=== PATIENT | male | born 1980 | race Caucasian/White ===

== ENCOUNTER 2019-04-27 02:15 | Inpatient (IN) | payer MEDICAID ==
[~2019-04-27] VITALS: Ht 170.2 cm; Wt 75.7 kg
--- NOTE | 2019-04-27 02:21 | NUR ---
PT BIBA TO BED 02.
--- NOTE | 2019-04-27 02:25 | NUR ---
39 YO M BIBA FROM HOUSE FOR CHEST PAIN. PER EMS, PT WAS FOUND SITTING IN CHAIR SCREAMING IN PAIN, CLUTCHING CHEST AND UNABLE TO PROVIDE ANY MEDICAL HX OR INFORMATION. PT ARRIVES AWAKE, SCREAMING UNINTELLIGBLE PHRASES, WRITHING ON GURNEY, CLUTCHING CHEST. PT UNABLE TO PROVIDE ANY INFORMATION OR HISTORY AT THIS TIME. GCS 13. -- PT AWAKE, A/O X 0. UNCCOPERATIVE, AGGRESSIVE BEHAVIOR. PT IS NOT COMBATIVE AT THIS TIME. SECURITY CALLED TO ED. UNABLE TO ANSWER QUESTIONS. -- SKIN IS MOIST, CLAMMY. VSS ELEVATED. PUPILS FIXED AND CONTSRTICTED. PMH-- UNOBTAINABLE
[2019-04-27] MEDS ORDERED: HALOPERIDOL IM 5 MG/ML VIAL IM ONE (02:30)
[2019-04-27] MEDS ORDERED: LORazepam 2 MG/ML VIAL IM ONE (02:30)
[2019-04-27] MEDS ORDERED: LORazepam 2 MG/ML VIAL ONE (02:31)
--- NOTE | 2019-04-27 03:00 | NUR ---
PT IS CALM, SEDATED. NURSING CARES RESUMED.
--- NOTE | 2019-04-27 03:02 | NUR ---
EKG PERFORMED AT BEDSIDE
--- NOTE | 2019-04-27 03:15 | NUR ---
LABS DRAWN BY RN AT BEDSIDE.
--- NOTE | 2019-04-27 03:30 | NUR ---
# 16 FR straight catheter utilizing sterile technique. Immediate return of 250 ml yellow urine noted. Urine sample collected and sent to lab. Pt tolerated procedure well.
--- NOTE | 2019-04-27 03:35 | NUR ---
XRAY AT BEDSIDE. CXR COMPLETED.
[2019-04-27 04:02] LABS: APPEARANCE,URINE CLEAR (CLEAR); BILIRUBIN,URINE NEGATIVE (NEGATIVE); BLOOD, URINE TRACE-L (NEGATIVE); COLOR,URINE YELLOW (YELLOW); LEUKOCYTE ESTERASE ,URINE NEGATIVE (NEGATIVE); NITRITE, URINE NEGATIVE (NEGATIVE); PH,URINE 6.5 (5.0-9.0); UGLUCOSE 3+ (NEGATIVE)
[2019-04-27 04:04] LABS: BASOPHILS # (AUTO) 0.1 K/uL (0.00-0.22); BASOPHILS % (AUTO) 0.6 % (0.0-2.0); EOSINOPHILS # (AUTO) 0.1 K/uL (0-0.4); HEMATOCRIT 46.9 % (36-52); HEMOGLOBIN 15.8 g/dL (12.0-18.0); LYMPHOCYTES # (AUTO) 2.7 K/uL (2.0-11.5); LYMPHOCYTES % (AUTO) 31.3 % (20.5-51.1); MEAN CORPUSCULAR HEMOGLOBIN 28 pg (27-31); MEAN CORPUSCULAR HGB CONC 34 g/dL (33-37); MEAN CORPUSCULAR VOLUME 82.6 fL (80-94); MONOCYTES # (AUTO) 0.7 K/uL (0.8-1.0); MONOCYTES % (AUTO) 8.2 % (1.7-9.3); NEUTROPHILS # (AUTO) 5.1 K/uL (1.8-7.7); PLATELET COUNT (AUTO) 198 K/uL (140-450); RED BLOOD CELL COUNT(AUTO) 5.68 MIL/uL (4.20-6.10); RED CELL DISTRIBUTION WIDTH 14.3 % (11.6-13.7); WHITE BLOOD COUNT (AUTO) 8.7 K/uL (4.8-10.8)
[2019-04-27 04:08] LABS: BARBITURATE, URINE NEG. ng/ml (NEG <=200); BENZODIAZEPINE, URINE NEG. ng/mL (NEG <=200); CANNABINOID, URINE POS. ng/mL (NEG <=50); COCAINE, URINE POS. ng/mL (NEG <=300); OPIATE, URINE NEG. ng/mL (NEG <=2000); PHENCYCLIDINE SCREEN,URINE NEG. ng/mL (NEG <=25)
--- NOTE | 2019-04-27 04:08 | NUR ---
PT TAKEN TO CT VIA [facility] WITH RN, EMT, SPRING INTERN.
[2019-04-27 04:18] LABS: ALBUMIN 3.9 g/dL (3.4-5.0); ASPARTATE AMINOTRANSFERASE 21 U/L (15-37); CARBON DIOXIDE 23.6 mmol/L (21-32); CHLORIDE 97 mmol/L (98-107); CREATININE 0.9 mg/dL (0.7-1.3); GFR ARICAN-AMERICAN 120 mL/min (>90); GLUCOSE 342 mg/dL (74-106); SODIUM SERUM 133 mmol/L (136-145); TOTAL BILIRUBIN 0.7 mg/dL (0.0-1.0); UREA NITROGEN, BLOOD 13 mg/dL (7-18)
[2019-04-27 04:27] LABS: NEUTROPHILS % (AUTO) 58.9 % (42.2-75.2)
--- NOTE | 2019-04-27 04:28 | NUR ---
PT RETURNED FROM CT VIA [facility] WITH RN, EMT, CATHODE MAKER. Addendum: 04/27/19 at 0432 by [facility] PT TOLERATED WELL.
[2019-04-27 04:32] LABS: POTASSIUM 2.6 mmol/L (3.5-5.1); SALICYLATE < 2.8 mg/dL (2.8-20.0)
[2019-04-27 04:33] LABS: ACETAMINOPHEN < 0.5 ug/ml (10-30)
[2019-04-27] MEDS ORDERED: KCL 20 MEQ/WATER INJ PREMIX 200 ML IV ONE (04:35)
[2019-04-27 04:44] LABS: RBC,URINE 0-5 /HPF (0-5); WBC,URINE NONE SEEN /HPF (0-5)
--- NOTE | 2019-04-27 05:24 | NUR ---
PT SLEEPING DEEPLY. LOUD SNORING HEARD. AROUSABLE TO PAINFUL STIMULI. VSS. SKIN PINK, COOL, CLAMMY.
[2019-04-27] MEDS ORDERED: POTASSIUM CHL 40 MEQ/ D5-1/2NS 1,000 ML IV ONE (06:00)
[2019-04-27] MEDS: NACL 0.9% 1,000 ML IV SCH ×2 (06:13→21:57)
[2019-04-27] MEDS ORDERED: MORPHINE SULFATE 2 MG/ML SYR IVP PRN (06:15)
[2019-04-27] MEDS ORDERED: HYDROcodone/APAP 5/325 MG 1 TAB TAB PO PRN (06:15)
[2019-04-27] MEDS ORDERED: ACETAMINOPHEN 325 MG TAB PO PRN (06:15)
[2019-04-27] MEDS ORDERED: DOCUSATE SODIUM 100 MG GELCAP PO PRN (06:15)
[2019-04-27] MEDS ORDERED: ONDANSETRON 4 MG/2 ML VIAL IM/IVP PRN (06:15)
[2019-04-27] MEDS ORDERED: INSULIN LISPRO SLIDING SCALE 100 UNITS/ML VIAL SUBQ PRN (06:25)
[2019-04-27] MEDS ORDERED: DEXTROSE 50% 50 ML SYR IVP PRN ×2 (06:25→11:20)
--- NOTE | 2019-04-27 06:33 | NUR ---
PT SLEEPING DEEPLY. LOUD SNORING HEARD. AROUSABLE TO PAINFUL STIMULI. VSS. SKIN PINK, COOL, CLAMMY. Addendum: 04/27/19 at 0636 by [facility] KCL RUNNING WITHOUT COMPLICATIONS.
[2019-04-27 06:55] LABS: CHOL/HDL RATIO 8.3 (1-4.5); MAGNESIUM 1.8 mg/dL (1.8-2.4); PHOSPHORUS 1.7 mg/dL (2.5-4.9); THYROID STIMULATING HORMONE 6.56 uIU/mL (0.34-3.74)
[2019-04-27 07:00] LABS: PROTHROMBIN TIME 9.7 secs (10.8-13.4)
--- NOTE | 2019-04-27 07:29 | NUR ---
REPORT GIVEN TO ARNIE RENEE. TRANSFER OF CARE AT THIS TIME.
[2019-04-27] MEDS ORDERED: BLOOD GLUCOSE MONITORING 1 DEV DEV FS SCH (07:30)
--- NOTE | 2019-04-27 07:30 | NUR ---
CHECKED PT. REPONSE TO PAIN STIMULI. NO S/S OF RESPIRATORY DISTRESS NOTED.
--- NOTE | 2019-04-27 08:00 | NUR ---
PT IS MORE AWAKE, ALERT. ABLE TO FOLLOW COMMANDS.
--- NOTE | 2019-04-27 08:20 | NUR ---
Pt admitted to room 124A via gurney from ER. Pt transferred from gurney to bed with minimal assistance .Report received from Er nurse Jeanne. Pt drowsy, unable to state name, unable to answer complex questions, difficulty following commands, fall precautions initiated, unable to complete medical history due to ALOC. . L AC IV 18 G, d5 1/2 NS plus 40 meq KCL @ 50 ml / hr. Bed alarm , monitor technician in place. Call light in reach
[2019-04-27 08:30] VITALS: BP 115/78
--- NOTE | 2019-04-27 08:30 | NUR ---
TRANSFERRED PT TO TELE 124 A, REPORT GIVEN TO RAFAT GAITAN. PT VITALS STABLE
[2019-04-27] MEDS ORDERED: METOPROLOL 25 MG TAB PO SCH ×2 (09:21→21:00)
[2019-04-27] MEDS ORDERED: LISINOPRIL 10 MG TAB PO SCH (09:22)
[2019-04-27] MEDS ORDERED: ATORVASTATIN 20 MG TAB PO SCH (09:23)
[2019-04-27] MEDS ORDERED: ASPIRIN 81 MG TAB.CHEW PO SCH (09:24)
--- NOTE | 2019-04-27 10:54 | NUR ---
Late entry. Confirmed with nurse that 20 meq KCL IV ended on transfer at 0830. D5.45 w/KCL IV ended at 0830 whern transferred.
[2019-04-27] MEDS ORDERED: SODIUM PHOS / POTASSIUM PHOS 1 PKT PDR PO SCH (11:00)
[2019-04-27] MEDS ORDERED: GLUCAGON 1 MG VIAL IVP PRN (11:20)
[2019-04-27 12:00] VITALS: BP 105/70
[2019-04-27 12:08] LABS: ANION GAP 12.2 (8-16); CARBON DIOXIDE 24.9 mmol/L (21-32); CREATININE 0.8 mg/dL (0.7-1.3); POTASSIUM 4.1 mmol/L (3.5-5.1)
[2019-04-27] MEDS: BLOOD GLUCOSE MONITORING 1 DEV DEV FS SCH ×3 (12:17→21:00)
--- NOTE | 2019-04-27 12:30 | NUR ---
Pt asleep in bed, arousable by shaking. Pt drowsy, able to follow simple commands but falls back to sleep almost immediately. No signs of distress. Left AC IV intact with ongoing D5 1/2NS @ 50ml/h. Bed alarm on. Call light within reach.
[2019-04-27] MEDS: INSULIN LISPRO SLIDING SCALE 100 UNITS/ML VIAL SUBQ PRN ×3 (12:31→22:07)
[2019-04-27 12:51] LABS: URIC ACID 5.2 mg/dL (2.6-7.2)
--- NOTE | 2019-04-27 14:30 | NUR ---
Pt asleep in bed, arousable by shaking. Pt drowsy, able to follow simple commands but falls back to sleep almost immediately. No signs of distress. Call light within reach. [id number]
[2019-04-27 15:34] LABS: CKMB RELATIVE INDEX 0.6 (0.0-2.5); CREATINE KINASE MB 2.3 ng/mL (0-3.6)
[2019-04-27 16:00] VITALS: BP 96/61
--- NOTE | 2019-04-27 17:00 | NUR ---
Pt asleep in bed, arousable by shaking. Pt still drowsy, able to follow simple commands but falls back to sleep almost immediately. No signs of distress. Call light within reach.
--- NOTE | 2019-04-27 18:00 | NUR ---
Pt aaox4, verbally responsive in Japanese. Medical & social hx obtained from pt via [employer] bridge inspector (Abdiaziz # [id number]). Pt provided showroom salesperson (friend) Jaye Almanza [phone] in case of emergency. Pt oriented to room & unit, able to return demonstrate proper use of call light. Bed alarm on. Call light within reach.
[2019-04-27] MEDS ORDERED: INFLUENZA VACCINE QUAD 0.5 ML SYR IMVAC PRN (19:00)
[2019-04-27] MEDS ORDERED: PNEUMOCOCCAL VACCINE 23 MCG/0.5 ML VIAL IMVAC PRN (19:00)
--- NOTE | 2019-04-27 19:19 | NUR ---
Shift report given to phlebotomy director nurse. Pt sleeping at this time. No signs of distress. Call light in each.
--- NOTE | 2019-04-27 19:20 | NUR ---
Received endorsement from AM shift RN; patient A/Ox3, able to make needs known, Mauritian speaking, ambulatory. Patient eating dinner; introduced self, updated board. No SOB or distress noted, on room air. IV site noted on left forearm, 18 gauge, running IVF. Bed in the lowest position, call light within reach. Initial assessment done. will continue to monitor.
[2019-04-27 20:00] VITALS: BP 110/64
--- NOTE | 2019-04-27 20:50 | NUR ---
Vitals taken, no distress noted.
--- NOTE | 2019-04-27 21:55 | NUR ---
Due meds given, tolerated well.
[2019-04-27] MEDS: GABAPENTIN 300 MG CAP PO SCH (21:57)
[2019-04-28] VITALS: BP 90/54
--- NOTE | 2019-04-28 00:40 | NUR ---
Vitals taken, no distress noted.
--- NOTE | 2019-04-28 02:40 | NUR ---
Rounds done; patient asleep on left lateral side, visible chest rise and fall noted.
[2019-04-28 04:00] VITALS: BP 100/58
[2019-04-28] MEDS: NACL 0.9% 1,000 ML IV SCH ×3 (04:23→21:52)
--- NOTE | 2019-04-28 04:40 | NUR ---
Vitals taken, no distress noted.
[2019-04-28] MEDS: BLOOD GLUCOSE MONITORING 1 DEV DEV FS SCH ×4 (04:57→21:50)
[2019-04-28] MEDS: INSULIN LISPRO SLIDING SCALE 100 UNITS/ML VIAL SUBQ PRN ×3 (05:02→21:53)
--- NOTE | 2019-04-28 06:30 | NUR ---
Vitals stable, due meds given. Will endorse to AM shift RN for continuity of care.
[2019-04-28 06:43] LABS: ANION GAP 11.8 (8-16); CREATININE 0.7 mg/dL (0.7-1.3); POTASSIUM 3.8 mmol/L (3.5-5.1)
[2019-04-28 06:44] LABS: BASOPHILS % (AUTO) 0.7 % (0.0-2.0); EOSINOPHILS # (AUTO) 0.2 K/uL (0-0.4); EOSINOPHILS % (AUTO) 3.1 % (0.0-4.0); HEMATOCRIT 44.4 % (36-52); HEMOGLOBIN 14.7 g/dL (12.0-18.0); LYMPHOCYTES % (AUTO) 44.9 % (20.5-51.1); MEAN CORPUSCULAR HEMOGLOBIN 28 pg (27-31); MEAN CORPUSCULAR HGB CONC 33 g/dL (33-37); MEAN CORPUSCULAR VOLUME 84.4 fL (80-94); MONOCYTES # (AUTO) 0.4 K/uL (0.8-1.0); MONOCYTES % (AUTO) 6.4 % (1.7-9.3); NEUTROPHILS % (AUTO) 44.9 % (42.2-75.2); PLATELET COUNT (AUTO) 178 K/uL (140-450); RED BLOOD CELL COUNT(AUTO) 5.26 MIL/uL (4.20-6.10); RED CELL DISTRIBUTION WIDTH 14.4 % (11.6-13.7); WHITE BLOOD COUNT (AUTO) 6.6 K/uL (4.8-10.8)
[2019-04-28 06:55] LABS: MAGNESIUM 1.6 mg/dL (1.8-2.4); PHOSPHORUS 4.2 mg/dL (2.5-4.9)
--- NOTE | 2019-04-28 07:15 | NUR ---
Received bedside report from pm nurse Saroj. Pt resting in bed, aaox4, no signs of distress, no c/o discomfort. Left AC IV intact with ongoing NS @ 130ml/h. Bed alarm on. Call light within reach.
[2019-04-28 07:53] VITALS: BP 98/63
[2019-04-28] MEDS ORDERED: metFORMIN 500 MG TAB PO SCH ×2 (08:19→17:00)
--- NOTE | 2019-04-28 08:27 | NUR ---
PATIENT HAS BEEN SCREENED AND CATEGORIZED MODERATE NUTRITION RISK. PATIENT WILL BE SEEN WITHIN 3-5 DAYS OF ADMISSION. 04/29/19 05/01/[address]
[2019-04-28] MEDS: ASPIRIN 81 MG TAB.CHEW PO SCH (08:44)
[2019-04-28] MEDS: metFORMIN 500 MG TAB PO SCH ×2 (08:44→17:12)
[2019-04-28] MEDS: LISINOPRIL 10 MG TAB PO SCH (08:48)
--- NOTE | 2019-04-28 10:36 | NUR ---
Pt aaox4, resting in bed, watching TV. No signs of distress, no c/o discomfort. Left AC IV intact with ongoing NS @ 130ml/h. Pt with steady gait, & good safety awareness, able to navigate with IV pole from bed to restroom & vice versa. Call light within reach.
--- NOTE | 2019-04-28 10:51 | NUR ---
Dr Sim notified of Mg level = 1.6. Per physician, will input orders accordingly.
[2019-04-28] MEDS ORDERED: MAG SULF 2000 MG/WATER PREMIX 50 ML IV SCH (10:53)
[2019-04-28 12:00] VITALS: BP 115/73
[2019-04-28] MEDS ORDERED: KETOROLAC 30 MG/ML VIAL IM PRN (12:15)
--- NOTE | 2019-04-28 12:30 | NUR ---
Offered to change gown from yellow to blue (dc fall precautions). Pt refused and states "later". Pt amb steadily, able to maneuver IV pole with good safety awareness. Left AC IV intact with ongoing NS @ 130ml/h. Call light within reach.
[2019-04-28 16:00] VITALS: BP 112/75
--- NOTE | 2019-04-28 17:45 | NUR ---
Pt sitting up in bed, eating dinner. No c/o discomfort, no signs of distress. Left AC IV intact with ongoing NS @ 130ml/h. Call light within reach.
[2019-04-28] MEDS ORDERED: LISI10TA11 PO (18:45)
[2019-04-28] MEDS ORDERED: GABA-638 PO (18:45)
[2019-04-28] MEDS ORDERED: ATOR20TA40 PO (18:45)
[2019-04-28] MEDS ORDERED: ASPI81CT95 PO (18:45)
[2019-04-28] MEDS ORDERED: METF500T PO (18:45)
--- NOTE | 2019-04-28 19:10 | NUR ---
Bedside report given to pm nurse Kisses. Pt in non distress.
--- NOTE | 2019-04-28 19:26 | NUR ---
RECEIVED BEDSIDE REPORT FROM DAY SHIFT NURSE. PATIENT IS AWAKE AND COOPERATIVE. RESPIRATION EVEN UNLABORED ON ROOM AIR. NO DISTRESS NOTED. SKIN IS WARM AND DRY. IV PATENT AND INTACT. PLAN OF CARE WAS DISCUSSED. ALL SAFETY MEASURES IN PLACE. BED IS AT LOW POSITION. CALL LIGHT WITHIN REACH AND VERBALIZES ITS USE. WILL CONTINUE TO MONITOR.
[2019-04-28 20:00] VITALS: BP 115/85
--- NOTE | 2019-04-28 20:10 | NUR ---
INITIAL ASSESSMENT DONE. VITALS WERE TAKEN. PATIENT IN STABLE CONDITION. WILL CONTINUE TO MONITOR.
[2019-04-28] MEDS ORDERED: ATORVASTATIN 20 MG TAB PO SCH (21:00)
--- NOTE | 2019-04-28 21:30 | NUR ---
ALL SCHEDULED MEDS WERE GIVEN PER ORDER. NO ASE NOTED. WILL CONTINUE TO MONITOR.
[2019-04-28] MEDS: GABAPENTIN 300 MG CAP PO SCH (21:50)
--- NOTE | 2019-04-28 22:45 | NUR ---
PATIENT IN BED WATCHING TV RESPIRATION EVEN UNLABORED ON ROOM AIR. NO DISTRESS NOTED. WILL CONTINUE TO MONITOR
[2019-04-29] VITALS: BP 120/82
--- NOTE | 2019-04-29 | NUR ---
VITALS WERE TAKEN. PATIENT IN STABLE CONDITION. NO DISTRESS NOTED. WILL CONTINUE TO MONITOR
--- NOTE | 2019-04-29 02:15 | NUR ---
CHECKED PATIENT. PATIENT SLEEPING RESPIRATION EVEN UNLABORED ON ROOM AIR. NO DISTRESS NOTED. WILL CONTINUE TO MONITOR.
[2019-04-29 04:00] VITALS: BP 128/88
--- NOTE | 2019-04-29 04:00 | NUR ---
VITALS WERE TAKEN. PATIENT IN STABLE CONDITION. NO DISTRESS NOTED. WILL CONTINUE TO MONITOR.
[2019-04-29] MEDS: NACL 0.9% 1,000 ML IV SCH ×2 (05:05→11:37)
[2019-04-29] MEDS: INSULIN LISPRO SLIDING SCALE 100 UNITS/ML VIAL SUBQ PRN (06:05)
[2019-04-29] MEDS: BLOOD GLUCOSE MONITORING 1 DEV DEV FS SCH ×2 (06:20→11:30)
[2019-04-29 06:57] LABS: BASOPHILS % (AUTO) 0.5 % (0.0-2.0); EOSINOPHILS # (AUTO) 0.2 K/uL (0-0.4); EOSINOPHILS % (AUTO) 2.4 % (0.0-4.0); HEMATOCRIT 41.9 % (36-52); HEMOGLOBIN 13.8 g/dL (12.0-18.0); LYMPHOCYTES # (AUTO) 2.5 K/uL (2.0-11.5); LYMPHOCYTES % (AUTO) 34.8 % (20.5-51.1); MEAN CORPUSCULAR HEMOGLOBIN 28 pg (27-31); MEAN CORPUSCULAR HGB CONC 33 g/dL (33-37); MEAN CORPUSCULAR VOLUME 83.7 fL (80-94); MONOCYTES # (AUTO) 0.4 K/uL (0.8-1.0); MONOCYTES % (AUTO) 5.3 % (1.7-9.3); PLATELET COUNT (AUTO) 165 K/uL (140-450); RED BLOOD CELL COUNT(AUTO) 5.01 MIL/uL (4.20-6.10); RED CELL DISTRIBUTION WIDTH 14.1 % (11.6-13.7); WHITE BLOOD COUNT (AUTO) 7.1 K/uL (4.8-10.8)
[2019-04-29 07:00] LABS: MAGNESIUM 1.6 mg/dL (1.8-2.4); PHOSPHORUS 4.2 mg/dL (2.5-4.9)
--- NOTE | 2019-04-29 07:11 | NUR ---
ENDORSED PATIENT TO DAY SHIFT NURSE. PATIENT IN STABLE CONDITION.
--- NOTE | 2019-04-29 07:15 | NUR ---
RECEIVED PT FROM FORTUNE TELLER NURSEYESSICA, PT IS AWAKE AND LYING ON THE BED WITH SIDE RAILS UP AND CALL LIGHT WITHIN REACH, IV LINE ON THE LEFT FA G. 18 WITH IVF NS INFUSING AT 130ML/HR, PT DENIES PAIN AND NO SIGN OF DISTRESS NOTED. WILL MONITOR PT.
[2019-04-29 08:00] VITALS: BP 131/92
[2019-04-29] MEDS ORDERED: metFORMIN 500 MG TAB PO SCH (08:00)
--- NOTE | 2019-04-29 08:45 | NUR ---
DR. FOLEY TALKING TO PT NOW AND ASSESSING PT.
[2019-04-29] MEDS: ASPIRIN 81 MG TAB.CHEW PO SCH (08:46)
[2019-04-29] MEDS: LISINOPRIL 10 MG TAB PO SCH (08:47)
[2019-04-29] MEDS: metFORMIN 500 MG TAB PO SCH (08:50)
--- NOTE | 2019-04-29 08:50 | NUR ---
PT IS AWAKE AND PARAMETER CHECKED, BP IS 139/97, PULSE IS 84, ORAL MEDICATIONS WERE GIVEN AND TOLERATED IT. WILL MONITOR PT.
[2019-04-29] MEDS ORDERED: ASPI81CT95 PO (10:03)
[2019-04-29] MEDS ORDERED: METF500T PO (10:03)
[2019-04-29] MEDS ORDERED: GABA-638 PO (10:03)
[2019-04-29] MEDS ORDERED: ATOR20TA40 PO (10:03)
[2019-04-29] MEDS ORDERED: LISI10TA11 PO (10:03)
[2019-04-29 10:26] LABS: ANION GAP 14.1 (8-16); CARBON DIOXIDE 22.7 mmol/L (21-32); CREATININE 0.8 mg/dL (0.7-1.3); POTASSIUM 3.8 mmol/L (3.5-5.1)
--- NOTE | 2019-04-29 10:30 | NUR ---
PT WAS GIVEN PNA VACCINE NOW ON THE RT DELTOID.
--- NOTE | 2019-04-29 10:33 | NUR ---
PT WAS GIVEN FLU VACCINE NOW ON THE LEFT DELTOID.
--- NOTE | 2019-04-29 10:46 | NUR ---
DISCHARGED INSTRUCTIONS WELL THE MEDICATIONS TEACHINGS WERE GIVEN TO PT NOW VIA [employer]ERCE STRATEGIST, BENJAMIN #[id number] AND PT VERBALIZED UNDERSTANDING. ARM BANDS HEART MONITOR AND IV LINE WERE REMOVED NOW
[2019-04-29] MEDS ORDERED: MAGNESIUM OXIDE 400 MG TAB PO SCH (11:15)
--- NOTE | 2019-04-29 11:20 | NUR ---
DISCHARGED PT TO HOME VIA WHEELCHAIR, DISCHARGED INSTRUCTIONS AND TEACHINGS GIVEN VIA TOY CONSULTANT# [id number], BENJAMIN AND PT VERBALIZED UNDERSTANDING, PT DENIES PAIN AND IS STABLE AT THIS TIME.
== END 2019-04-29 12:00 | disposition home or self-care (01) | DRG 816 ==
LOC: MED 02:15 → EDBD 06:13 → MTU 06:13
PROVIDERS: ADMIT General Practice; ATTEND General Practice
PROC: 3E0234Z Introduction of Serum, Toxoid and Vaccine into Muscle, Percutaneous Approach (ICD-10-PCS; principal; 2019-04-27)
DX: T40.5X1A Poisoning by cocaine, accidental (unintentional), initial encounter (principal); G92 Toxic encephalopathy; E11.40 Type 2 diabetes mellitus with diabetic neuropathy, unspecified; E11.65 Type 2 diabetes mellitus with hyperglycemia; E87.8 Other disorders of electrolyte and fluid balance, not elsewhere classified; F14.129 Cocaine abuse with intoxication, unspecified; E83.39 Other disorders of phosphorus metabolism; E87.1 Hypo-osmolality and hyponatremia; E87.6 Hypokalemia; I10 Essential (primary) hypertension; E03.9 Hypothyroidism, unspecified; E78.5 Hyperlipidemia, unspecified; F12.929 Cannabis use, unspecified with intoxication, unspecified; Z23 Encounter for immunization; Z83.3 Family history of diabetes mellitus; Z82.49 Family history of ischemic heart disease and other diseases of the circulatory system; Y92.89 Other specified places as the place of occurrence of the external cause
CPT/HCPCS: 36415; 70450; 71045; 80048; 80053; 80305; 81001; 82140; 82550; 82553; 82948; 83036; 83690; 83735; 83880; 84100; 84443; 84484; 84550; 85025; 85610; 85730; 87081; 90732; 93005; 96372; 99285; C1758; G0480; G0482; J1630; J1815; J1885; J2060; J3475; J3480; J7030; Q0092